=== PATIENT | female | born 2000 | race American Indian/Alaskan Native ===

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

== ENCOUNTER 2021-02-11 15:23 | Outpatient (CLI) | payer MEDICAID ==
[2021-02-11 16:19] VITALS: BP 127/71
[2021-02-11] MEDS ORDERED: LACTATED RINGERS 1,000 ML IV ONE (16:25)
[2021-02-11 17:44] LABS: Bilirubin,Urine NEG (Negative); Blood,Urine NEG (Negative); Color,Urine Yellow (Yellow); Mucus,Urine FEW /HPF; Protein,Urine <15 mg/dL mg/dL (Negative); Urobilinogen,Urine < 2.0 mg/dL (<2.0)
[2021-02-11] MEDS ORDERED: LACTATED RINGERS 500 ML IV ONE (18:06)
[2021-02-11] MEDS: TERBUTALINE 1 MG/1 ML INJ SUB-Q SCH ×3 (18:19→19:53)
== END 2021-02-11 22:11 | disposition home or self-care (01) ==
LOC: TRG 15:23 → APU 15:24 → TRG 22:11
PROVIDERS: ATTEND Obstetrics & Gynecology
DX: O26.853 Spotting complicating pregnancy, third trimester (principal); O26.893 Other specified pregnancy related conditions, third trimester; R10.9 Unspecified abdominal pain; Z3A.33 33 weeks gestation of pregnancy
CPT/HCPCS: 59025; 81001; 87086; 96360; 96372; J3105; J7120; 96361